=== PATIENT | female | born 1975 | race Asian ===

== ENCOUNTER 2020-04-28 13:31 | Emergency (ER) | payer OTHER ==
[~2020-04-28] VITALS: Ht 162.6 cm; Wt 51.4 kg
[2020-04-28 13:32] VITALS: BP 122/73
== END 2020-04-28 14:29 | disposition home or self-care (01) ==
LOC: EMS 13:37
DX: Z03.818 Encounter for observation for suspected exposure to other biological agents ruled out (principal); R03.0 Elevated blood-pressure reading, without diagnosis of hypertension; M79.10 Myalgia, unspecified site; R11.0 Nausea; Z88.5 Allergy status to narcotic agent; Z88.8 Allergy status to other drugs, medicaments and biological substances
CPT/HCPCS: 99283; U0003